=== PATIENT | male | born 1970 | race African-American/Black ===

== ENCOUNTER 2016-11-07 09:49 | Emergency (ER) | payer OTHER ==
[~2016-11-07] VITALS: Ht 185.4 cm; Wt 86.5 kg
[~2016-11-07 09:49] MED LIST: ALEVE220 M2 PO; AMITRIPTYLINE H25 MG PO; BACTRIM,SEPT1 TABLET PO; BENTYL10 MG PO; BUPROPION HCL150 M2 PO; EPIPEN ADU0.3 MG/0.3 IM; FLEXERIL10 MG PO; Glucophage PO; KEPPRA500 MG PO; LANTUS 10100 UNITS/ SC; LANTUS 3 M100 UNITS1 SC; LANTUS 3 M100 UNITS1 SQ; LANTUS100 UNIT/1 SQ; LISINOPRIL PO; LISINOPRIL10 MG PO; LISINOPRIL30 MG PO; LO-DOSE ASPIRIN81 M1 PO; LORTAB 10-3251 EACH PO; LOVASTATIN20 MG PO; Lopid PO; METFORMIN HCL500 MG PO; MEVACOR20 MG PO; NEURONTIN400 MG PO; NORCO 5/3251 TABLET PO; NOVOLOG 10100 UNITS/ IV; NOVOLOG 10100 UNITS/ SC; NOVOLOG MI100 UNIT/M SC; NOVOLOG PE100 UNITS/ SC; OMEPRAZOLE40 M1 PO; OXYCODONE HCL5 MG PO; OxyCONTIN PO; PERCOCET 5/31 TABLET PO; PRINIVIL20 MG PO; WELLBUTRIN PO; WELLBUTRIN SR150 MG PO; ZANAFLEX2 M1 PO; ZESTRIL30 MG PO; ZITHROMAX Z-PA250 MG PO; ZOFRAN ODT4 MG PO; Zocor PO; oxyCODONE PO
[2016-11-07 10:47] LABS: ADD MIUA? YES; BILIRUBIN NEGATIVE; BLOOD NEGATIVE; COLOR YELLOW ((YELLOW)); GLUCOSE (STRIP) >=500; KETONES NEGATIVE; LEUKOCYTES LARGE; NITRITE NEGATIVE; PROTEIN (STRIP) 30; SPECIFIC GRAVITY 1.026 (1.000-1.030); UROBILINOGEN 0.2 MG/DL (0.2-1.0)
[2016-11-07 10:52] LABS: BACTERIA NONE SEEN /HPF; EPITHELIAL CELLS RARE /HPF; MUCUS NONE SEEN /LPF; RED BLOOD CELLS 0-5 /HPF (0-5); UCUL ADDED? YES; WHITE BLOOD CELLS TNTC /HPF (0-5)
[2016-11-07] MEDS ORDERED: KEFLEX500 MG PO (11:23)
[2016-11-07 11:48] VITALS: BP 155/97
[2016-11-08 09:40] LABS: POINT-OF-CARE METER ID UU13113747
== END 2016-11-07 11:50 | disposition home or self-care (01) ==
LOC: EME 09:49
PROVIDERS: Physician Assistant
DX: N39.0 Urinary tract infection, site not specified (principal); E11.65 Type 2 diabetes mellitus with hyperglycemia; Z79.4 Long term (current) use of insulin; E78.5 Hyperlipidemia, unspecified; G89.29 Other chronic pain; Z88.0 Allergy status to penicillin; Z79.82 Long term (current) use of aspirin; F17.200 Nicotine dependence, unspecified, uncomplicated
CPT/HCPCS: 81003; 82948; 87086; 99281; 99283; J1815

== ENCOUNTER 2016-12-30 12:42 | Observation (INO) | payer OTHER ==
[~2016-12-30] VITALS: Ht 185.4 cm; Wt 82.2 kg
[~2016-12-30 12:42] MED LIST changes: +KEFLEX500 MG PO; -NEURONTIN400 MG PO; +NEURONTIN800 MG PO
[2016-12-30 13:29] LABS: HEMATOCRIT 39.3 % (38.0-50.0); MCH 30.5 PG (29.0-34.0); MCHC 34.6 G/DL (30.0-36.0); MCV 88.1 FL (86-99); MEAN PLAT.VOLUME 10.5 uM^3 (9.0-12.4); PLATELET COUNT 153 K/uL (156-360); RBC DIS.WIDTH-CV 12.2 % (11.8-14.6); RBC DIS.WIDTH-SD 39.7 % (39-53); RED BLOOD COUNT 4.46 M/uL (4.00-5.50); WHITE BLOOD COUNT 6.7 K/uL (4.1-10.2)
[2016-12-30 13:37] LABS: CHLORIDE 98 mEq/L (99-109); POTASSIUM 4.6 mEq/L (3.7-5.4); SODIUM 129 mEq/L (136-147)
[2016-12-30 13:40] LABS: ANION GAP 9 MEQ/L (2-14); GLUCOSE 643 mg/dL (70-99)
[2016-12-30 13:43] LABS: GFR ESTIMATE (CALCULATED) > 59 mL/min/
[2016-12-30 13:44] LABS: UREA NITROGEN (BUN) 13 mg/dL (9-23)
[2016-12-30 13:50] LABS: TROP-I INTERPRETATION NEGATIVE; TROPONIN-I < 0.01 ng/mL (0.0-0.30)
[2016-12-30 14:01] LABS: LIPASE 40 U/L (1.0-51.0)
[2016-12-30] MEDS ORDERED: OMEPRAZOLE40 M1 PO (16:19)
[2016-12-30 17:13] LABS: POINT-OF-CARE METER ID UU14100415
[2016-12-30 19:14] LABS: TROP-I INTERPRETATION NEGATIVE; TROPONIN-I < 0.01 ng/mL (0.0-0.30)
[2016-12-30 19:29] LABS: D-DIMER ELISA < 150.00 ng/mLDDU (<230)
[2016-12-30 20:25] VITALS: BP 135/83
[2016-12-31 00:31] VITALS: BP 127/78
[2016-12-31 01:00] LABS: TROP-I INTERPRETATION NEGATIVE; TROPONIN-I < 0.01 ng/mL (0.0-0.30)
[2016-12-31 05:07] VITALS: BP 119/81
[2016-12-31 05:11] LABS: POINT-OF-CARE METER ID UU13113831
[2016-12-31 05:52] LABS: MCH 30.4 PG (29.0-34.0); MCHC 34.1 G/DL (30.0-36.0); MCV 89.2 FL (86-99); MEAN PLAT.VOLUME 10.3 uM^3 (9.0-12.4); PLATELET COUNT 160 K/uL (156-360); RBC DIS.WIDTH-CV 12.6 % (11.8-14.6); RBC DIS.WIDTH-SD 41.2 % (39-53); RED BLOOD COUNT 4.37 M/uL (4.00-5.50); WHITE BLOOD COUNT 6.8 K/uL (4.1-10.2)
[2016-12-31 06:19] LABS: PROTHROMBIN TIME 11.5 SEC (10.2-12.9)
[2016-12-31 06:22] LABS: PTT 29.3 SEC (25-37)
[2016-12-31 06:30] LABS: ALKALINE PHOSPHATASE 77 IU/L (3-129); ANION GAP 7 MEQ/L (2-14); CHLORIDE 110 MEQ/L (99-109); GFR ESTIMATE (CALCULATED) > 59 mL/min/; POTASSIUM 4.2 MEQ/L (3.7-5.4); SAMPLE HEMOLYSIS CHECK 0; SAMPLE ICTERIC CHECK 0; SAMPLE LIPEMIA CHECK 0; TOTAL BILIRUBIN 0.2 MG/DL (0.0-1.0); UREA NITROGEN (BUN) 14 mg/dL (9-23)
[2016-12-31 06:40] LABS: GLUCOSE 198 mg/dL (70-99); SODIUM 140 MEQ/L (136-147)
[2016-12-31 08:20] LABS: POINT-OF-CARE METER ID UU13113700
[2016-12-31 08:20] LABS: POINT-OF-CARE METER ID UU13113831
[2016-12-31 08:23] VITALS: BP 124/81
[2016-12-31 08:29] LABS: POINT-OF-CARE METER ID UU14100415
[2016-12-31 08:30] LABS: POINT-OF-CARE METER ID UU14100415
[2016-12-31 11:51] VITALS: BP 121/87
[2016-12-31 12:18] LABS: POINT-OF-CARE METER ID UU14162513
== END 2016-12-31 12:50 | disposition home or self-care (01) ==
LOC: EME 12:42 → ENRESERV 17:21 → EDOF 17:23 → 5WEST 17:23 → EDOF 17:23 → ENRESERV 17:43 → 5WEST 19:43
PROVIDERS: Emergency Medicine; Hospitalist; Internal Medicine
DX: R07.9 Chest pain, unspecified (principal); E11.65 Type 2 diabetes mellitus with hyperglycemia; E78.5 Hyperlipidemia, unspecified; R06.02 Shortness of breath; I10 Essential (primary) hypertension; G89.4 Chronic pain syndrome; F17.200 Nicotine dependence, unspecified, uncomplicated; R10.13 Epigastric pain; R10.84 Generalized abdominal pain; Z79.4 Long term (current) use of insulin; M48.00 Spinal stenosis, site unspecified; Z82.49 Family history of ischemic heart disease and other diseases of the circulatory system; Z83.3 Family history of diabetes mellitus; Z82.3 Family history of stroke; Z91.041 Radiographic dye allergy status; Z88.0 Allergy status to penicillin; Z79.82 Long term (current) use of aspirin
CPT/HCPCS: 71020; 74176; 80048; 80053; 82010; 82948; 83690; 84484; 85027; 85379; 85610; 85730; 93005; 99281; 99284; G0378; J1650; J1815; J7030; S0028

== ENCOUNTER 2017-01-09 13:24 | Observation (INO) | payer OTHER ==
[~2017-01-09] VITALS: Ht 188 cm; Wt 82.3 kg
[2017-01-09 14:25] LABS: ADD MIUA? NO; BILIRUBIN NEGATIVE; BLOOD NEGATIVE; COLOR STRAW ((YELLOW)); GLUCOSE (STRIP) >=500; KETONES 5; LEUKOCYTES NEGATIVE; NITRITE NEGATIVE; PROTEIN (STRIP) NEGATIVE; SPECIFIC GRAVITY 1.026 (1.000-1.030); UCUL ADDED? NO; UROBILINOGEN 0.2 MG/DL (0.2-1.0)
[2017-01-09 15:03] LABS: CARBON DIOXIDE (BICARBONATE) 23.9 MEQ/L (20-31)
[2017-01-09 15:04] LABS: HEMATOCRIT 41.9 % (38.0-50.0); MCH 30.1 PG (29.0-34.0); MCHC 33.9 G/DL (30.0-36.0); MEAN PLAT.VOLUME 10.1 uM^3 (9.0-12.4); PLATELET COUNT 204 K/uL (156-360); RBC DIS.WIDTH-CV 12.1 % (11.8-14.6); RBC DIS.WIDTH-SD 39.7 % (39-53); RED BLOOD COUNT 4.71 M/uL (4.00-5.50); WHITE BLOOD COUNT 6.6 K/uL (4.1-10.2)
[2017-01-09 15:14] LABS: CHLORIDE 97 mEq/L (99-109); POTASSIUM 4.9 mEq/L (3.7-5.4); SODIUM 126 mEq/L (136-147)
[2017-01-09 15:17] LABS: ANION GAP 9 MEQ/L (2-14)
[2017-01-09 15:19] LABS: GFR ESTIMATE (CALCULATED) > 59 mL/min/
[2017-01-09 15:20] LABS: UREA NITROGEN (BUN) 20 mg/dL (9-23)
[2017-01-09 15:25] LABS: GLUCOSE 720 mg/dL (70-99)
[2017-01-09 17:38] VITALS: BP 136/82
[2017-01-09 19:53] VITALS: BP 134/83
[2017-01-09 21:30] LABS: POINT-OF-CARE METER ID UU13113700
[2017-01-10 00:51] LABS: CARBON DIOXIDE (BICARBONATE) 24.9 MEQ/L (20-31)
[2017-01-10 01:03] LABS: POTASSIUM 4.2 mEq/L (3.7-5.4)
[2017-01-10 01:04] LABS: MAGNESIUM 1.7 mg/dL (1.3-2.7)
[2017-01-10 01:05] LABS: CHLORIDE 107 mEq/L (99-109); GLUCOSE 304 mg/dL (70-99); SODIUM 135 mEq/L (136-147)
[2017-01-10 01:06] LABS: ANION GAP 5 MEQ/L (2-14)
[2017-01-10 01:07] LABS: TOTAL BILIRUBIN 0.3 mg/dL (0.0-1.0)
[2017-01-10 01:09] LABS: ALKALINE PHOSPHATASE 87 IU/L (3-129); GFR ESTIMATE (CALCULATED) > 59 mL/min/
[2017-01-10 01:10] LABS: UREA NITROGEN (BUN) 16 mg/dL (9-23)
[2017-01-10 04:36] VITALS: BP 136/80
[2017-01-10 06:01] LABS: ANION GAP 8 MEQ/L (2-14); CHLORIDE 108 MEQ/L (99-109); GFR ESTIMATE (CALCULATED) > 59 mL/min/; GLUCOSE 331 mg/dL (70-99); POTASSIUM 4.5 MEQ/L (3.7-5.4); SAMPLE HEMOLYSIS CHECK 0; SAMPLE ICTERIC CHECK 0; SAMPLE LIPEMIA CHECK 0; SODIUM 137 MEQ/L (136-147); UREA NITROGEN (BUN) 14 mg/dL (9-23)
[2017-01-10 08:04] LABS: POINT-OF-CARE METER ID UU13113700
[2017-01-10 09:29] VITALS: BP 131/79
[2017-01-10 12:15] VITALS: BP 140/75
[2017-01-10] MEDS ORDERED: EPIPEN ADU0.3 MG/0.3 IM (12:15)
[2017-01-10] MEDS ORDERED: NICOTINE PATCH1 EAC2 TD (12:15)
[2017-01-10] MEDS ORDERED: MEVACOR20 MG PO (12:15)
[2017-01-10] MEDS ORDERED: NEURONTIN800 MG PO (12:16)
[2017-01-10] MEDS ORDERED: ZESTRIL30 MG PO (12:16)
[2017-01-10] MEDS ORDERED: LO-DOSE ASPIRIN81 M1 PO (12:16)
[2017-01-10] MEDS ORDERED: BUPROPION HCL150 M2 PO (12:17)
[2017-01-10] MEDS ORDERED: KEPPRA500 MG PO (12:17)
[2017-01-10] MEDS ORDERED: LANTUS 10100 UNITS/ SC (12:18)
[2017-01-10] MEDS ORDERED: OMEPRAZOLE40 M1 PO (12:18)
[2017-01-10] MEDS ORDERED: NOVOLOG 10100 UNITS/ SC (12:18)
[2017-01-11 14:21] LABS: POINT-OF-CARE METER ID UU13113700
[2017-01-11 14:21] LABS: POINT-OF-CARE METER ID UU14100415; POINT-OF-CARE USER ID STWBNM
== END 2017-01-10 15:09 | disposition home or self-care (01) ==
LOC: EME 13:24 → ENRESERV 15:30 → 5WEST 15:34 → EDOF 15:34 → ENRESERV 15:41 → 5WEST 17:06
PROVIDERS: Emergency Medicine; Internal Medicine; Physician Assistant Medical
DX: E11.65 Type 2 diabetes mellitus with hyperglycemia (principal); T38.3X6A Underdosing of insulin and oral hypoglycemic [antidiabetic] drugs, initial encounter; Z91.14 Patient's other noncompliance with medication regimen; E11.42 Type 2 diabetes mellitus with diabetic polyneuropathy; Z79.4 Long term (current) use of insulin; I10 Essential (primary) hypertension; E78.5 Hyperlipidemia, unspecified; F17.200 Nicotine dependence, unspecified, uncomplicated; N17.9 Acute kidney failure, unspecified; E87.1 Hypo-osmolality and hyponatremia; E86.0 Dehydration; G47.30 Sleep apnea, unspecified; Z79.82 Long term (current) use of aspirin; Z88.0 Allergy status to penicillin; Z91.041 Radiographic dye allergy status; Z82.49 Family history of ischemic heart disease and other diseases of the circulatory system
CPT/HCPCS: 80048; 80053; 81003; 82010; 82803; 82948; 83735; 85027; 99281; 99285; G0378; J1644; J1815; J2405; J7030

== ENCOUNTER 2017-05-21 17:01 | Inpatient (IN) | payer OTHER ==
[~2017-05-21] VITALS: Ht 185.4 cm; Wt 86.2 kg
[~2017-05-21 17:01] MED LIST changes: +NICOTINE PATCH1 EAC2 TD
[2017-05-21 18:15] LABS: HEMATOCRIT 45.5 % (38.0-50.0); MCH 30.7 PG (29.0-34.0); MCHC 35.2 G/DL (30.0-36.0); MCV 87.2 FL (86-99); PLATELET COUNT 234 K/uL (156-360); RBC DIS.WIDTH-CV 11.9 % (11.8-14.6); RBC DIS.WIDTH-SD 38.4 % (39-53); RED BLOOD COUNT 5.22 M/uL (4.00-5.50); WHITE BLOOD COUNT 8.1 K/uL (4.1-10.2)
[2017-05-21 18:25] LABS: CHLORIDE 94 mEq/L (99-109); POTASSIUM 4.6 mEq/L (3.7-5.4); SODIUM 127 mEq/L (136-147)
[2017-05-21 18:31] LABS: CREATININE 1.7 mg/dL (0.6-1.3); GFR ESTIMATE (CALCULATED) 56 mL/min/ (58.99-99999)
[2017-05-21 18:32] LABS: UREA NITROGEN (BUN) 20 mg/dL (9-23)
[2017-05-21 18:39] LABS: GLUCOSE 730 mg/dL (70-99)
[2017-05-21 19:15] LABS: APPEARANCE CLEAR ((CLEAR)); BILIRUBIN NEGATIVE; BLOOD NEGATIVE; COLOR STRAW ((YELLOW)); GLUCOSE (STRIP) >=500; KETONES NEGATIVE; LEUKOCYTES NEGATIVE; NITRITE NEGATIVE; PROTEIN (STRIP) 30; SPECIFIC GRAVITY 1.031 (1.000-1.030); UCUL ADDED? NO; UROBILINOGEN 0.2 MG/DL (0.2-1.0)
[2017-05-21 23:23] VITALS: BP 139/88; BP 155/67
[2017-05-22 03:40] VITALS: BP 127/66
[2017-05-22 06:23] LABS: HEMATOCRIT 38.7 % (38.0-50.0); MCH 29.8 PG (29.0-34.0); MCHC 34.1 G/DL (30.0-36.0); MCV 87.4 FL (86-99); PLATELET COUNT 210 K/uL (156-360); RBC DIS.WIDTH-CV 11.9 % (11.8-14.6); RBC DIS.WIDTH-SD 38.6 % (39-53); RED BLOOD COUNT 4.43 M/uL (4.00-5.50); WHITE BLOOD COUNT 9.4 K/uL (4.1-10.2)
[2017-05-22 06:40] LABS: HEMOGLOBIN 13.2 G/DL (12.5-16.6)
[2017-05-22 06:54] LABS: CHLORIDE 109 MEQ/L (99-109); POTASSIUM 4.2 MEQ/L (3.7-5.4); UREA NITROGEN (BUN) 17 mg/dL (9-23)
[2017-05-22 06:55] LABS: CREATININE 0.9 MG/DL (0.6-1.3); GFR ESTIMATE (CALCULATED) > 59 mL/min/ (58.99-99999); GLUCOSE 204 mg/dL (70-99); SODIUM 139 MEQ/L (136-147)
[2017-05-22 07:14] LABS: Estimated Average Glucose 381 mg/dL (70-123); HEMOGLOBIN A1c (GLYCOHEMOGLOB) 14.9 % HGB (Below 5.7)
[2017-05-22 08:21] VITALS: BP 126/69
[2017-05-22] MEDS ORDERED: LYRICA75 MG PO (08:43)
[2017-05-22] MEDS ORDERED: LANTUS 10100 UNITS/ SC (08:44)
[2017-05-22] MEDS ORDERED: ASPIRIN81 M2 PO (09:44)
[2017-05-22] MEDS ORDERED: MEVACOR20 MG PO (09:44)
[2017-05-22] MEDS ORDERED: CHILD ASPIRIN81 M1 PO (09:45)
[2017-05-22] MEDS ORDERED: LOVASTATIN20 MG PO (09:45)
[2017-05-22] MEDS ORDERED: KEPPRA500 MG PO (09:51)
[2017-05-22 12:00] VITALS: BP 129/81
[2017-05-22 16:00] VITALS: BP 118/72
== END 2017-05-22 18:40 | disposition left against medical advice (07) | DRG 638 ==
LOC: EME 17:01 → EDOF 19:38 → ENRESERV 19:47 → EDOF 20:59 → 5EAST 20:59 → EDOF 20:59 → ENRESERV 21:03 → 5EAST 22:27
PROVIDERS: Emergency Medicine; Hospitalist
DX: E11.65 Type 2 diabetes mellitus with hyperglycemia (principal); Z91.14 Patient's other noncompliance with medication regimen; N17.9 Acute kidney failure, unspecified; E86.0 Dehydration; E87.1 Hypo-osmolality and hyponatremia; E11.40 Type 2 diabetes mellitus with diabetic neuropathy, unspecified; E78.5 Hyperlipidemia, unspecified; G47.30 Sleep apnea, unspecified; M25.511 Pain in right shoulder; K21.9 Gastro-esophageal reflux disease without esophagitis; G43.909 Migraine, unspecified, not intractable, without status migrainosus; M48.00 Spinal stenosis, site unspecified; G40.909 Epilepsy, unspecified, not intractable, without status epilepticus; I10 Essential (primary) hypertension; F32.9 Major depressive disorder, single episode, unspecified; F41.9 Anxiety disorder, unspecified; F17.210 Nicotine dependence, cigarettes, uncomplicated; Z79.4 Long term (current) use of insulin; Z83.3 Family history of diabetes mellitus
CPT/HCPCS: 73030; 80048; 81003; 82010; 82803; 82948; 83036; 85027; 99281; 99285; J1650; J1815; J7030

== ENCOUNTER 2017-06-04 16:26 | Emergency (ER) | payer OTHER ==
[~2017-06-04] VITALS: Ht 185.4 cm; Wt 88.3 kg
[~2017-06-04 16:26] MED LIST changes: +ASPIRIN81 M2 PO; +CHILD ASPIRIN81 M1 PO; +LYRICA75 MG PO
[2017-06-04 17:33] LABS: BASOPHIL (%) 0.6 % (0-1); BASOPHIL COUNT 0.1 K/uL (0-0.1); EOSINOPHIL (%) 1.2 % (0-5); EOSINOPHIL COUNT 0.1 K/uL (0-0.3); HEMATOCRIT 43.4 % (38.0-50.0); HEMOGLOBIN 14.7 G/DL (12.5-16.6); IMMATURE GRANULOCYTE (%) 0.2 % (0.0-0.7); LYMPHOCYTE (%) 47.4 % (15-42); MCH 30.7 PG (29.0-34.0); MCHC 33.9 G/DL (30.0-36.0); MCV 90.6 FL (86-99); MONOCYTE (%) 5.1 % (3-12); MONOCYTE COUNT 0.4 K/uL (0-0.8); NEUTROPHIL (%) 45.5 % (45-76); NEUTROPHIL COUNT 3.8 K/uL (1.8-6.4); PLATELET COUNT 218 K/uL (156-360); RBC DIS.WIDTH-CV 12.3 % (11.8-14.6); RBC DIS.WIDTH-SD 40.8 % (39-53); RED BLOOD COUNT 4.79 M/uL (4.00-5.50); WHITE BLOOD COUNT 8.4 K/uL (4.1-10.2)
[2017-06-04 17:42] LABS: CHLORIDE 94 mEq/L (99-109); POTASSIUM 4.9 mEq/L (3.7-5.4); SODIUM 125 mEq/L (136-147)
[2017-06-04 17:48] LABS: CREATININE 1.6 mg/dL (0.6-1.3); GFR ESTIMATE (CALCULATED) > 59 mL/min/ (58.99-99999)
[2017-06-04 17:49] LABS: UREA NITROGEN (BUN) 21 mg/dL (9-23)
[2017-06-04 17:50] LABS: GLUCOSE 835 mg/dL (70-99)
[2017-06-04 17:53] LABS: BASE EXCESS -3.5 mEq/L (-3 to +3); BICARBONATE 22.1 mEq/L (22-26); METHEMOGLOBIN 0.7 % (0-1.5); PO2 89 mm Hg (80-100); pH 7.34 (7.35-7.45)
[2017-06-04 17:56] LABS: COMMENTS - BLOOD GASES A+C+; FI02 21 %; PCO2 41 mm Hg (35-45); SITE LR
[2017-06-04 19:11] LABS: TROP-I INTERPRETATION NEGATIVE; TROPONIN-I < 0.01 ng/mL (0.0-0.30)
[2017-06-04 19:22] LABS: APPEARANCE CLEAR ((CLEAR)); BILIRUBIN NEGATIVE; BLOOD NEGATIVE; COLOR COLORLESS ((YELLOW)); GLUCOSE (STRIP) >=500; KETONES NEGATIVE; LEUKOCYTES NEGATIVE; NITRITE NEGATIVE; PROTEIN (STRIP) NEGATIVE; SPECIFIC GRAVITY 1.024 (1.000-1.030); UCUL ADDED? NO; UROBILINOGEN 0.2 MG/DL (0.2-1.0)
[2017-06-04 20:28] VITALS: BP 147/93
== END 2017-06-04 20:30 | disposition home or self-care (01) ==
LOC: EME 16:26
PROVIDERS: Nurse Practitioner Family; Physician Assistant
DX: E11.65 Type 2 diabetes mellitus with hyperglycemia (principal); E11.40 Type 2 diabetes mellitus with diabetic neuropathy, unspecified; I10 Essential (primary) hypertension; E78.5 Hyperlipidemia, unspecified; K21.9 Gastro-esophageal reflux disease without esophagitis; F17.200 Nicotine dependence, unspecified, uncomplicated; F41.9 Anxiety disorder, unspecified; F32.9 Major depressive disorder, single episode, unspecified; Z79.4 Long term (current) use of insulin; Z79.82 Long term (current) use of aspirin; Z88.0 Allergy status to penicillin; Z91.041 Radiographic dye allergy status; G47.30 Sleep apnea, unspecified
CPT/HCPCS: 36600; 71046; 80048; 81003; 82010; 82803; 82948; 84484; 85025; 93005; 99281; 99285; J2270; J2405; J7030

== ENCOUNTER 2017-09-08 02:03 | Emergency (ER) | payer OTHER ==
[~2017-09-08] VITALS: Ht 182.9 cm; Wt 89.9 kg
[2017-09-08] MEDS ORDERED: CLEOCIN300 MG PO (03:46)
[2017-09-08 04:30] VITALS: BP 165/99
== END 2017-09-08 04:32 | disposition home or self-care (01) ==
LOC: EME 02:03
PROC: 0HQFXZZ Repair Right Hand Skin, External Approach (ICD-10-PCS; principal; 2017-09-08)
DX: S61.411A Laceration without foreign body of right hand, initial encounter (principal); Y04.0XXA Assault by unarmed brawl or fight, initial encounter; E10.9 Type 1 diabetes mellitus without complications; Z79.4 Long term (current) use of insulin; Z79.82 Long term (current) use of aspirin; Z88.0 Allergy status to penicillin; Z91.041 Radiographic dye allergy status; F17.200 Nicotine dependence, unspecified, uncomplicated
CPT/HCPCS: 73130; 99281; 99285